=== PATIENT | male | born 1990 | race Two or more races ===

== ENCOUNTER 2017-03-25 13:04 | Emergency (ER) | payer OTHER ==
[~2017-03-25] VITALS: Ht 167.6 cm; Wt 65.3 kg
[2017-03-25] MEDS ORDERED: BACTRIM DS TAB1 EAC1 ORAL (13:39)
[2017-03-25] MEDS ORDERED: IBUPROFEN600 MG ORAL (13:39)
[2017-03-25] MEDS ORDERED: CEPHALEXIN500 MG ORAL (13:39)
[2017-03-25] MEDS ORDERED: PredniSONE 20mg tab ORAL ONE (13:45)
[2017-03-25] MEDS ORDERED: TdaP Vaccine 0.5ml Syr IM ONE (13:45)
[2017-03-25] MEDS ORDERED: Bactrim DS (160mg/800mg) tab ORAL ONE (13:45)
[2017-03-25] MEDS ORDERED: Cephalexin 500mg cap ORAL ONE (13:45)
[2017-03-25] MEDS ORDERED: PREDNISONE20 MG ORAL (13:46)
--- NOTE | 2017-03-25 14:36 | Emergency Room Report ---
History of Present Illness General Chief Complaint: Skin Rash/Abscess Source: Patient Present Illness HPI The patient is a 26-year-old male presenting for possible insect bite. He states that he was at work and taking out trash when he noticed pain to the left elbow and saw a nearby black spider with brown markings. He states the spider was . He then noticed gradual increasing of redness of the elbow and became concerned. He denies any pain at this time. He denies numbness or tingling. He denies any other symptoms including fever, chills, fatigue, headache, dizziness, blurred vision, abdominal pain, diarrhea. He is unsure of last tetanus shot Allergies: Coded Allergies: No Known Allergies (Unverified , 03/25/17) Patient History Past Medical History: see triage record Pertinent Family History: none Reviewed Nursing Documentation: PMH: Agreed, PSxH: Agreed Nursing Documentation-PMH Past Medical History: No Stated History Review of Systems All Other Systems: negative except mentioned in HPI Physical Exam Vital Signs Date Time Temp Pulse Resp B/P Pulse Ox O2 Delivery O2 Flow Rate FiO2 03/25/17 13:10 98.4 118 20 142/84 98 Room Air Sp02 EP Interpretation: reviewed, normal General Appearance: no apparent distress, alert, GCS 15, non-toxic Head: normocephalic, atraumatic Eyes: bilateral eye PERRL, bilateral eye normal inspection ENT: hearing grossly normal, normal pharynx, no angioedema, normal voice Musculoskeletal: back normal, gait/station normal, normal range of motion, non- tender, inflammation - L elbow, swelling Neurologic: alert, oriented x3, responsive, motor strength/tone normal, sensory intact, speech normal Psychiatric: judgement/insight normal, memory normal, mood/affect normal, no suicidal/homicidal ideation Skin: other - L elbow: erythema and swelling over posterior elbow. Mild TTP. Central puncture lesion seen Lymphatic: no adenopathy Medical Decision Making PA Attestation Dr. Seay is my supervising physician. Patient management was discussed with my supervising physician Diagnostic Impression: Primary Impression: Insect bite Qualified Codes: W57.XXXA - Bitten or stung by nonvenomous insect and other nonvenomous arthropods, initial encounter ER Course The patient is a 26-year-old male presenting for possible insect bite Ddx considered include but not limited to insect bite, contact dermatitis, eczema, cellulitis, bursitis PE: vitals WNL. NAD Left elbow: There is erythema to the left posterior elbow with center over the olecranon. There is a small puncture at the center. The area is hot to touch. Full active range of motion. No fluctuance. Nontender The patient is given a tetanus vaccination, oral steroids, and antibiotics He'll be discharged with a prescription for Motrin, steroids, and antibiotics. He will follow up with PMD and worker's compensation. ER precautions given Last Vital Signs Date Time Temp Pulse Resp B/P Pulse Ox O2 Delivery O2 Flow Rate FiO2 03/25/17 13:10 98.4 118 20 142/84 98 Room Air Status: improved Disposition: HOME, SELF-CARE Condition: Improved Scripts Prednisone* (PREDNISONE*) 20 Mg Tablet 20 MG ORAL DAILY, #4 TAB 0 Refills Prov: ROBIN RIVERS P.A. 03/25/17 Trimethoprim/Sulfamethoxazole 160/800* (BACTRIM DS TABLET*) 1 Each Tablet 1 TAB ORAL TWICE A DAY, #14 TAB Prov: TERZIANINDIOY P.A. 03/25/17 Cephalexin* (KEFLEX*) 500 Mg Capsule 500 MG ORAL EVERY 6 HOURS, #28 CAP Prov: TERZIAN,ROBIN P.A. 03/25/17 Ibuprofen* (MOTRIN*) 600 Mg Tablet 600 MG ORAL Q6H Y for For Pain, #30 TAB Prov: TERZIAN,ROBIN P.A. 03/25/17 Referrals: NOT CHOSEN [facility]/MD,REFERRING (PCP) Patient Instructions: Insect Bite Additional Instructions: I discussed my findings with the patient. All questions and concerns have been answered. Treatment and medication compliance have been addressed.Return to ED if symptoms worsen, new symptoms arise such as fever or chills, or if needed for any reason. Patient verbalized understanding of discharge instructions. Please follow up with worker's compensation ROBIN RIVERS March 25, 2017 14:36
[2017-03-25 14:40] VITALS: BP 125/83
== END 2017-03-25 14:41 | disposition home or self-care (01) ==
LOC: EMR 13:42
DX: S50.362A Insect bite (nonvenomous) of left elbow, initial encounter (principal); Z23 Encounter for immunization; W57.XXXA Bitten or stung by nonvenomous insect and other nonvenomous arthropods, initial encounter; Y93.9 Activity, unspecified; Y92.9 Unspecified place or not applicable
CPT/HCPCS: 90471; 90715; 96372; 99284